=== PATIENT | male | born 1955 | race Caucasian/White ===

== ENCOUNTER 2017-08-02 12:28 | Emergency (ER) | payer BC ==
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
[2017-08-02 14:22] VITALS: BP 124/75
--- NOTE | 2017-08-04 07:54 | CR ---
Right fourth finger: Three views centered to the right fourth finger were obtained. Comparison: No previous finger or hand exam. No fracture, dislocation or other bony abnormality is identified. Impression: 1. No abnormality is identified on three-view right fourth finger study. Diagnostic code #1
--- NOTE | 2017-08-04 07:57 | CT ---
CT facial bones Technique: Multiple axial sections through the facial bones were obtained. Intravenous contrast not utilized. Findings: Mucosal thickening is seen within the ethmoid and maxillary sinuses. Several small retention cysts are suspected within the left maxillary sinus. Very minimal nasal bone fracture appears to be present. No additional facial bone abnormality is identified. Soft tissue swelling is noted within the right face. Impression: 1. Minimal nasal bone fracture. 2. Sinus findings which are felt to be pre-existing and incidental. 3. Mild soft tissue swelling. Diagnostic code #2 I agree with preliminary report issued by [facility] ([facility] preliminary report dictated on 08/02/17, 2:53 PM Central Time)
--- NOTE | 2017-08-04 07:57 | CT ---
Head CT Technique: Multiple axial sections through the brain were obtained. Intravenous contrast was not utilized. Comparison: No prior intracranial imaging is available. Findings: Ventricles along with basal cisterns and sulci over the convexities are within normal limits for the patient's age. No abnormal parenchymal densities are seen. No evidence of intracranial hemorrhage. No midline shift or mass effect is identified. Mild scalp soft tissue swelling is seen on the right side within the right temporal region and right face. Bone window settings were reviewed which show minimal mucosal thickening within the paranasal sinuses which is felt to be incidental. No acute calvarial abnormality is identified. Impression: 1. Superficial soft tissue swelling. Sinus findings which are felt to be incidental. 2. No acute intracranial abnormality is appreciated. Diagnostic code #2 I agree with preliminary report issued by [facility] ([facility] preliminary report dictated on 08/02/17, 2:50 PM Central Time)
== END 2017-08-02 14:22 | disposition home or self-care (01) ==
LOC: JD.ED 12:28
DX: S02.2XXA Fracture of nasal bones, initial encounter for closed fracture (principal); S63.634A Sprain of interphalangeal joint of right ring finger, initial encounter; S00.83XA Contusion of other part of head, initial encounter; S00.81XA Abrasion of other part of head, initial encounter; S00.31XA Abrasion of nose, initial encounter; Y04.0XXA Assault by unarmed brawl or fight, initial encounter
CPT/HCPCS: 70450; 70450-26; 70486; 70486-26; 73140-26-F8; 73140-F8; 99284; 99284-25

== ENCOUNTER → 2021-12-04 | Day surgery (SDC) | payer MEDICARE, OTHER ==
[~2021-12-04] MED LIST: Lactated Ringers 1,000 ML IV SCH; Lidocaine 1% 4 ML ONE; Lidocaine 1%/Sod Bicarbonate in NS 8.4% 1 ML Syringe IDERM PRN; Propofol 200 MG/20 ML SDV ONE; Sodium Chloride 0.9% 10 ML Syringe FLUSH SCH
[2021-12-04 10:38] VITALS: BP 122/68; PULSE 53
== END | disposition home or self-care (01) ==
LOC: JD.SDS 07:37
PROVIDERS: ATTEND Surgery
DX: Z12.11 Encounter for screening for malignant neoplasm of colon (principal); D12.0 Benign neoplasm of cecum; K57.30 Diverticulosis of large intestine without perforation or abscess without bleeding; E78.00 Pure hypercholesterolemia, unspecified; E11.9 Type 2 diabetes mellitus without complications; F17.210 Nicotine dependence, cigarettes, uncomplicated; Z79.84 Long term (current) use of oral hypoglycemic drugs; Z79.899 Other long term (current) drug therapy; Z98.890 Other specified postprocedural states
CPT/HCPCS: 45380; 82947; 93005; J2704; J7120; 00812; 93010